=== PATIENT | male | born 1970 | race Caucasian/White ===

== ENCOUNTER 2017-05-24 08:30 | Day surgery (SDC) | payer OTHER ==
[2017-05-24 09:19] VITALS: BP 114/86; BMI 35.2
[2017-05-24] MEDS ORDERED: LISINOPRIL10 MG PO (09:33)
[2017-05-24] MEDS ORDERED: NAPROXEN250 MG PO (09:34)
[2017-05-24] MEDS ORDERED: LIPITOR10 MG PO (09:34)
[2017-05-24] MEDS ORDERED: OMEPRAZOLE20 M1 PO (09:35)
[2017-05-24 10:00] LABS: CALC OSMOLALITY 278 mosm/kg (275-300); CALCIUM 8.9 mg/dL (8.5-10.1); CARBON DIOXIDE 27.3 mmol/L (21.0-32.0); CHLORIDE - SERUM 105 mmol/L (98-107); CREATININE - SERUM 1.1 mg/dL (0.6-1.3); GLUCOSE 109 mg/dL (74-106); SODIUM 138 mmol/L (136-145); UREA NITROGEN 18 mg/dL (7-18); eGFR NON AFRICAN AMERICAN 76 mL/min (90-120)
[2017-05-24 10:11] LABS: BASOPHILS 0.3 % (0-2); HEMATOCRIT 33.9 % (42.0-54.0); HEMOGLOBIN 10.2 g/dL (13.5-17.5); IMMATURE GRANULOCYTES 0.2 % (0-5); MCH 23.9 pg (26.0-34.0); MCHC 30.1 g/dL (31.0-37.0); MCV 79.4 fL (80.0-100.0); MONOCYTES 8.2 % (2-11); NEUTROPHILS 58.3 % (40-80); PLATELET COUNT 303 10x3/uL (130-400); RBC 4.27 10x6/uL (4.20-6.10); RDW 16.4 % (11.5-14.5); WBC 6.6 10x3/uL (4.8-10.8)
--- NOTE | 2017-05-24 10:48 | NUR ---
DILATES ESOPHAGEAL STRICTURE WITH 60 JAPANESE X 1 MINUTE.
--- NOTE | 2017-05-24 11:28 | NUR ---
1100-RECD TO ROOM, ALERT. IV PATENT. RESP WITH EASE. 1110-DR MANUEL HERE TO REVIEW PROCEDURE AND FINDINGS.
--- NOTE | 2017-05-24 11:45 | NUR ---
1130-UP TO BATHROOM, VOIDED. IV D/C. DISCHARGE INSTRUCTIONS REVIEWED.
--- NOTE | 2017-05-24 12:55 | NUR ---
1220-father arrived to transport. d/c home via wheelchair.
--- NOTE | 2017-07-02 16:03 | OP ---
PATIENT NAME: SOHEILA PARK MEDICAL RECORD: [id number] :68 LOCATION:[facility] ADMISSION DATE: SURGEON: MADISYN MANUEL MD DATE OF OPERATION: 05/24/2017 PROCEDURE: EGD with balloon dilatation. SCOPE: Olympus video gastroscope and a CRE Microvasive balloon from 45-60 Haitian. MEDICATIONS: Per TIVA anesthesia. The patient received 320 mg of propofol IV push, O2 of 4 liters. INDICATION FOR THE PROCEDURE: Anemia, dysphagia, gastroesophageal reflux disease. FINDINGS: Informed consent was given. The patient was made comfortable with the above medications. After reaching an adequate level of sedation by slow IV push, the patient was placed on his left side. The endoscope was then advanced under direct visualization through the posterior pharyngeal area and advanced to the distal esophagus. At the distal esophageal area, a Schatzki ring was appreciated and after the inspection part of the EGD was completed, a CRE Microvasive balloon was placed in the same area, inflated to 60-Haitian, held in place for 1 minute without complication. We then advanced the scope into the gastric area. On retroflexion, the cardia and fundus had only mild inflammation as well as mild inflammation in the stomach body. We further advanced to the antrum, where dcju-[id number]-nkyoslqw inflammation, no erosions, no ulcers were appreciated. Histopathology, Helicobacter pylori biopsy was taken in this area. We also noted one 0.5-cm polyp within the stomach body and this was biopsied with cold biopsy forceps technique. The duodenal bulb to the second portion had mild inflammation and biopsies were obtained. The scope was then withdrawn. IMPRESSION: 1. The patient with a distal esophageal stricture successfully dilated to 60-Haitian without complication. 2. Mild reflux esophagitis. Biopsied the distal esophageal area, at the mid esophageal area, and the gastroesophageal junction. 3. Small hiatal hernia. 4. Jsvl-kp-rbfepooa gastritis. Biopsy taken at the antral area. 5. Biopsy taken of a 0.5-cm polyp in the body of the stomach. 6. Mild duodenitis. Biopsy taken in the second portion of the duodenum. PLAN: 1. Caution with anti-inflammatory drugs. 2. The patient to follow reflux precautions stringently, both dietary and positional, that is avoid caffeine, chocolate, tomatoes, citrus, fatty foods, peppermint, tobacco, and alcohol and not eat late at night and sit up for a couple hours after meals. 3. The patient is complaining of a cough. We will ask Dr. Castro to determine if lisinopril might be implicated in this problem. 4. The patient is taking omeprazole at a dose of 20 mg p.o. q.a.m. We will add famotidine 40 mg p.o. at bedtime. OPERATIVE REPORT [id number] SOHEILA PARK TRANSINT:[id number] Voice Confirmation ID: [id number] DOCUMENT ID: [id number] MADISYN MANUEL MD at 1603 CC: JEANA CASTRO MD [id number] DICTATION DATE: 05/24/17 1043 COUNTERINTELLIGENCE/HUMINT SPECIALIST: 05/24/17 1111 [facility] 05/24/17 [facility] [address] [place] [address]
== END 2017-05-24 12:20 | disposition home or self-care (01) ==
LOC: D.OPS 08:30
PROVIDERS: Anesthesiology
DX: D64.9 Anemia, unspecified (principal); K21.0 Gastro-esophageal reflux disease with esophagitis; K44.9 Diaphragmatic hernia without obstruction or gangrene; K29.70 Gastritis, unspecified, without bleeding; K29.80 Duodenitis without bleeding; K31.7 Polyp of stomach and duodenum; Z01.812 Encounter for preprocedural laboratory examination

== ENCOUNTER 2017-08-26 08:33 | Emergency (ER) | payer OTHER ==
[~2017-08-26 08:33] MED LIST: LIPITOR10 MG PO; LISINOPRIL10 MG PO; NAPROXEN250 MG PO; OMEPRAZOLE20 M1 PO
== END 2017-08-26 09:17 | disposition home or self-care (01) ==
LOC: D.ER 08:33
DX: S46.912A Strain of unspecified muscle, fascia and tendon at shoulder and upper arm level, left arm, initial encounter (principal); V49.9XXA Car occupant (driver) (passenger) injured in unspecified traffic accident, initial encounter; Y93.89 Activity, other specified; Y92.410 Unspecified street and highway as the place of occurrence of the external cause; I10 Essential (primary) hypertension